=== PATIENT | female | born 1995 | race Caucasian/White ===

== ENCOUNTER 2017-04-01 09:59 | Day surgery (SDC) | payer BC ==
[2017-03-31 11:42] VITALS: BMI 27.4
[~2017-04-01 09:59] MED LIST: LACTATED RINGERS 1,000 ML IV SCH; LIDOCAINE 1% 20 ML VIAL (10MG/ML) FOR IV START INTRADERMA PRN
[2017-04-01 11:09] VITALS: TEMP 97
[2017-04-01 11:09] LABS: Glucose,Whole Blood 78 mg/dL (75-99)
[2017-04-01] MEDS ORDERED: LIDOCAINE 1% INJ 10MG/ML (20 ML MDV) ONE (12:26)
[2017-04-01] MEDS ORDERED: MIDAZOLAM 2 MG/2 ML VIAL ONE (12:26)
[2017-04-01] MEDS ORDERED: PROPOFOL 10 MG/ML 20 ML VIAL IV ONE (12:26)
--- NOTE | 2017-04-01 13:13 | P.PCN ---
Date of Procedure: 04/01/17 Preoperative Diagnosis: Postoperative Diagnosis: Procedure(s) Performed: Brief history: Patient is a pleasant 22-year-old white female, scheduled for an elective upper endoscopy as well as colonoscopy as a part of evaluation of iron deficiency anemia that was noted 6 months ago. Recent hemoglobin was 9 g/dL and 9 and this is consistent with iron deficiency anemia. Lately has been complaint of periumbilical abdominal pain and occasional epigastric discomfort but denies any nausea vomiting. She reports no rectal bleeding or melena. No prior history of peptic ulcer disease. She had used NSAIDs in the past for arthritis symptoms but she quit taking it and since September of this year. She was recently diagnosed with juvenile rheumatoid arthritis and is on tapering course of prednisone. Procedure performed: Attempted esophagogastroduodenoscopy Colonoscopy with biopsy Preoperative diagnosis: Iron deficiency anemia Periumbilical and epigastric abdominal pain Anesthesia: MAC Procedure: After informed consent was obtained from the patient was brought into the endoscopy unit and IV sedation was administered by anesthesia under continuous monitoring. Initially upper endoscopy was done. The Olympus GF 160 video endoscope was inserted inserted into the mouth and esophagus could not be intubated despite multiple attempts. The scope was removed and a pediatric upper GI scope was inserted in the mouth and once again try to reintubate the esophagus but could not accomplish this. At this point, I used a guidewire which was passed from the upper esophageal sphincter into the esophagus and I tried to gently guide the scope over the guidewire but still was not possible as it appeared to be cricopharyngeal dysfunction. At this time I decided to terminate the procedure. Patient tolerated the procedure well. She continued to remain sedation. Initial digital rectal examination was normal. Olympus CF 160 video colonoscope was then inserted into the rectum and gradually advanced to the cecum without any difficulty. Careful examination was performed as the scope was gradually being withdrawn. The prep was excellent. The ileocecal valve appeared slightly narrowed. Endoscope was removed and a pediatric colonoscope was introduced into the rectum and gradually advanced into the cecum. The pediatric colonoscope was then used to intubate the terminal ileum . There were scattered erosions with ulcerations noted in the terminal ileum with some luminal narrowing, suspicious for Crohn's disease and biopsies were done from this area. The there scattered erosions with normal intervening mucosa noted in the cecum, ascending colon and the hepatic flexure and biopsies were also done from this area., transverse colon, descending colon, sigmoid colon and rectum appeared normal. Retroflexion was performed in the rectum and no lesions were noted. Patient tolerated the procedure well. Impression: 1. Attempted upper endoscopy but the esophagus could not be intubated despite multiple attempts. 2. Colonoscopy revealed: Scattered erosions with ulcerations in the terminal ileum with luminal narrowing suspicious for Crohn's disease Scattered erosions in the cecum, ascending colon and hepatic flexure with normal appearing intervening mucosa, status post biopsies. Left colon and transverse colon appeared normal. Recommendations: Findings of this examination were discussed with the patient as well as her family. She was advised to follow with the biopsy results. In the meantime she 'll be scheduled for an upper GI small bowel series to investigate further and she'll be seen in the office in a week from now. Implants: Indications for Procedure: Operative Findings: Description of Procedure:
[2017-04-01 13:43] VITALS: BP 125/83; PULSE 87; RESP 16
== END 2017-04-01 14:30 | disposition home or self-care (01) ==
LOC: ORWHC2ENDO 09:59
PROVIDERS: ATTEND Internal Medicine Gastroenterology
DX: D50.9 Iron deficiency anemia, unspecified (principal); K52.9 Noninfective gastroenteritis and colitis, unspecified; K52.89 Other specified noninfective gastroenteritis and colitis; M06.9 Rheumatoid arthritis, unspecified; Z79.52 Long term (current) use of systemic steroids; Z79.899 Other long term (current) drug therapy
CPT/HCPCS: 88305; 84703; 45380; J2250; J2001; J2704

== ENCOUNTER → 2017-04-05 | Outpatient (CLI) | payer BC ==
--- NOTE | 2017-04-05 10:45 | FL ---
EXAMINATION: Upper GI with small bowel follow through DATE: 04/05/2017 CLINICAL INDICATION: 22 year-old female with abdominal pain and colonoscopy on 04/01/2017 with biopsies ; findings suspicious for possible Crohn's disease. Unsuccessful attempt at EGD on 04/01/2017 due to un derlying JRA. COMPARISON: None Total Fluoroscopy Time: 1.21 minutes Total images: 40 FINDINGS: The esophagus has a normal caliber, motility and mucosa. There appears to be some posterior indentation along the upper thoracic esophagus. Vascular variant s uch as aberrant right subclavian artery is a possibility. Otherwise, normal course of the esophagus. There is a tiny hiatal hernia and minimal gastroesophageal reflux when the patient is supine. Tiny round filling defects within the gastric fundus and proximal body could represent air bubbles fr om effervescent granules or tiny hyperplastic polyps. Otherwise, the stomach and duodenum are free of any persistent filling defect and demonstrate a normal mucosal pattern. Following administration of barium, serial films were carried out to 30 minutes. Barium is seen to re ach the colon. This is borderline rapid small bowel transit time. Loops of jejunum and ileum are compressed and examined under fluoroscopy. The terminal ileum is identified and shows irregular narrowing with a short segment showing string-li ke opacification. However, the patient does not complain of pain during pressure over this region. There may be some inflammatory luminal narrowing of the inferior cecum as well. There is reflux seen into the appendix. The remaining small bowel loops have a normal caliber and mucosal pattern is within normal limits. IMPRESSION: 1. Tiny hiatal hernia and minimal gastroesophageal reflux when the patient is supine. 2. Focal posterior indentation along the upper thoracic esophagus could represent a vascular anomaly such as an aberrant right subclavian artery. 3. Small round filling defects in the gastric fundus and proximal body could represent either tiny hy perplastic polyps or air bubbles from the effervescent granules. 4. Borderline rapid small bowel transit time of 30 minutes. 5. Irregular luminal narrowing of the terminal ileum. A short segment of the TI shows a string-like c onfiguration. Crohn's ileitis is considered. As the patient did not complain of pain with focal press ure in this region during fluoroscopy, a postinflammatory stricture is not excluded. 6. Some luminal narrowing of the inferior cecum could represent additional inflammatory involvement.
== END | disposition home or self-care (01) ==
LOC: RADFLMAIN 07:55
PROVIDERS: ATTEND Internal Medicine Gastroenterology
DX: K21.9 Gastro-esophageal reflux disease without esophagitis (principal); K44.9 Diaphragmatic hernia without obstruction or gangrene; R93.3 Abnormal findings on diagnostic imaging of other parts of digestive tract; K63.89 Other specified diseases of intestine
CPT/HCPCS: 74245

== ENCOUNTER → 2017-06-10 | Outpatient (CLI) | payer BC ==
[2017-06-10 20:15] LABS: Appearance,Urine Clear (Clear); Bilirubin,Urine Negative (Negative); Glucose,Urine (UA) Negative (Negative); Ketones,Urine Negative (Negative); Leukocyte Esterase,Urine Trace (Negative); Mucus,Urine Rare /hpf; Nitrite,Urine Negative (Negative); PH, Urine 7.5 (5.0-8.0); Particle Count 2457; Protein,Urine Negative (Negative); RBC,Urine <1 /hpf (0-5); Specific Gravity,Urine 1.018 (1.001-1.035); Squamous Epithelial Cell,Urine 5 /hpf (0-4); UA Billing (MACRO vs. MICRO) MICRO; Urobilinogen,Urine <2.0 mg/dL (<2.0); WBC,Urine <1 /hpf (0-5)
== END | disposition home or self-care (01) ==
LOC: MMGSC 15:10
PROVIDERS: ATTEND Physician Assistant
DX: M25.551 Pain in right hip (principal)
CPT/HCPCS: 81001

== ENCOUNTER → 2017-06-27 | Outpatient (CLI) | payer BC | LOC: MMGSC 16:50 | PROVIDERS: ATTEND Family Medicine | DX: N39.0 Urinary tract infection, site not specified (principal) | CPT/HCPCS: 87086 ==

== ENCOUNTER → 2018-03-31 | Outpatient (CLI) | payer BC ==
--- NOTE | 2018-03-31 16:03 | XR ---
EXAMINATION TYPE: XR chest 2V DATE OF EXAM: 03/31/2018 COMPARISON: NONE HISTORY: Z11.1 TECHNIQUE: Frontal and lateral views of the chest are obtained. FINDINGS: There is no focal air space opacity, pleural effusion, or pneumothorax seen. The cardiac silhouette size is within normal limits. The osseous structures are intact. IMPRESSION: No acute cardiopulmonary process.
== END | disposition home or self-care (01) ==
LOC: RADXRMAIN 15:40
PROVIDERS: ATTEND Family Medicine
DX: Z11.1 Encounter for screening for respiratory tuberculosis (principal)
CPT/HCPCS: 71046

== ENCOUNTER → 2019-03-17 | Outpatient (CLI) | payer OTHER ==
[2019-03-17 11:02] LABS: Basophils % (A) 1 %; Eosinophils # (A) 0.2 k/uL (0-0.7); Eosinophils % (A) 2 %; HCT 40.2 % (34.0-46.0); HGB 12.7 gm/dL (11.4-16.0); Lymphocytes % (A) 31 %; MCH 27.7 pg (25.0-35.0); MCHC 31.6 g/dL (31.0-37.0); MCV 87.6 fL (80.0-100.0); Mean Platelet Volume 8.2; Monocytes # (A) 0.5 k/uL (0-1.0); Monocytes % (A) 7 %; Neutrophils # (A) 3.8 k/uL (1.3-7.7); Neutrophils % (A) 57 %; Platelet Count 224 k/uL (150-450); RBC 4.58 m/uL (3.80-5.40); RDW 13.1 % (11.5-15.5); WBC 6.6 k/uL (3.8-10.6)
[2019-03-17 12:46] LABS: Erythrocyte Sedimentation Rate 5 mm/hr (0-20)
[2019-03-17 16:16] LABS: ALT 15 U/L (8-44); AST 22 U/L (13-35); African American GFR (CKD) 141.5 (60.0-200.0); Albumin/Globulin Ratio 1.54 (1.60-3.17); Alkaline Phosphatase 85 U/L (41-126); BUN/Creat Ratio 28.57 Ratio (12.00-20.00); C Reactive Protein <0.4 mg/dL (0.0-0.8); Calcium 9.5 mg/dL (8.7-10.3); Carbon Dioxide 26.1 mmol/L (21.6-31.8); Chloride 108 mmol/L (96-109); Globulin 2.8 g/dL (1.6-3.3); Glucose 78 mg/dL (70-110); Potassium 4.2 mmol/L (3.5-5.5); Sodium 140 mmol/L (135-145); Total Bilirubin 0.6 mg/dL (0.3-1.2); Total Protein 7.1 g/dL (6.2-8.2)
== END | disposition home or self-care (01) ==
LOC: LABWHC1 10:34
PROVIDERS: ATTEND Internal Medicine Gastroenterology
DX: K50.80 Crohn's disease of both small and large intestine without complications (principal)
CPT/HCPCS: 36415; 80053; 85025; 85652; 86140

== ENCOUNTER → 2020-03-24 | Outpatient (CLI) | payer OTHER ==
[2020-03-24 11:05] LABS: Basophils # (A) 0.1 k/uL (0-0.2); Basophils % (A) 1 %; Eosinophils # (A) 0.2 k/uL (0-0.7); Eosinophils % (A) 2 %; HCT 39.9 % (34.0-46.0); HGB 12.6 gm/dL (11.4-16.0); Lymphocytes # (A) 2.7 k/uL (1.0-4.8); Lymphocytes % (A) 27 %; MCH 28.4 pg (25.0-35.0); MCHC 31.6 g/dL (31.0-37.0); MCV 89.8 fL (80.0-100.0); Mean Platelet Volume 8.6; Monocytes # (A) 0.7 k/uL (0-1.0); Monocytes % (A) 7 %; Neutrophils % (A) 61 %; Platelet Count 216 k/uL (150-450); RBC 4.44 m/uL (3.80-5.40); WBC 9.9 k/uL (3.8-10.6)
[2020-03-24 12:39] LABS: Erythrocyte Sedimentation Rate 6 mm/hr (0-20)
[2020-03-24 18:24] LABS: ALT 15 U/L (8-44); AST 17 U/L (13-35); African American GFR (CKD) 147.9 (60.0-200.0); Albumin/Globulin Ratio 1.65 (1.60-3.17); Alkaline Phosphatase 67 U/L (41-126); BUN/Creat Ratio 26.67 Ratio (12.00-20.00); C Reactive Protein <0.4 mg/dL (0.0-0.8); Calcium 9.1 mg/dL (8.7-10.3); Chloride 107 mmol/L (96-109); Globulin 2.6 g/dL (1.6-3.3); Glucose 88 mg/dL (70-110); Non-African American GFR(CKD) 127.6 (60.0-200.0); Potassium 3.8 mmol/L (3.5-5.5); Sodium 139 mmol/L (135-145); Total Bilirubin 0.7 mg/dL (0.3-1.2); Total Protein 6.9 g/dL (6.2-8.2)
== END | disposition home or self-care (01) ==
LOC: LABWHC1 09:42
PROVIDERS: ATTEND Nurse Practitioner
DX: K50.90 Crohn's disease, unspecified, without complications (principal)
CPT/HCPCS: 36415; 80053; 85025; 85652; 86140

== ENCOUNTER → 2020-09-17 | Outpatient (CLI) | payer OTHER ==
[2020-09-17 12:38] LABS: Basophils # (A) 0.1 k/uL (0-0.2); Basophils % (A) 1 %; Eosinophils # (A) 0.1 k/uL (0-0.7); Eosinophils % (A) 2 %; HCT 39.7 % (34.0-46.0); HGB 13.5 gm/dL (11.4-16.0); Lymphocytes # (A) 2.1 k/uL (1.0-4.8); Lymphocytes % (A) 31 %; MCH 30.1 pg (25.0-35.0); MCV 88.5 fL (80.0-100.0); Mean Platelet Volume 8.6; Monocytes # (A) 0.4 k/uL (0-1.0); Monocytes % (A) 6 %; Neutrophils % (A) 58 %; Platelet Count 207 k/uL (150-450); RBC 4.49 m/uL (3.80-5.40); RDW 12.8 % (11.5-15.5); WBC 6.8 k/uL (3.8-10.6)
[2020-09-17 13:42] LABS: Erythrocyte Sedimentation Rate 4 mm/hr (0-20)
[2020-09-18 00:08] LABS: ALT 18 U/L (8-44); AST 23 U/L (13-35); African American GFR (CKD) 140.6 (60.0-200.0); Albumin/Globulin Ratio 2.04 (1.60-3.17); Alkaline Phosphatase 70 U/L (41-126); BUN/Creat Ratio 18.57 Ratio (12.00-20.00); C Reactive Protein <0.4 mg/dL (0.0-0.8); Calcium 9.4 mg/dL (8.7-10.3); Carbon Dioxide 26.1 mmol/L (21.6-31.8); Chloride 107 mmol/L (96-109); Globulin 2.3 g/dL (1.6-3.3); Glucose 89 mg/dL (70-110); Non-African American GFR(CKD) 121.3 (60.0-200.0); Potassium 4.1 mmol/L (3.5-5.5); Sodium 139 mmol/L (135-145); Total Bilirubin 0.5 mg/dL (0.3-1.2)
== END | disposition home or self-care (01) ==
LOC: LABWHC1 11:45
PROVIDERS: ATTEND Internal Medicine Gastroenterology
DX: K50.90 Crohn's disease, unspecified, without complications (principal)
CPT/HCPCS: 36415; 80053; 85025; 85652; 86140

== ENCOUNTER → 2021-03-26 | Outpatient (CLI) | payer OTHER ==
[2021-03-26 22:58] LABS: Basophils # (A) 0.07 X 10*3/uL (0.00-0.10); Basophils % (A) 1.1 %; Eosinophils # (A) 0.14 X 10*3/uL (0.04-0.35); Eosinophils % (A) 2.2 %; HCT 41.3 % (37.2-46.3); HGB 13.4 g/dL (12.0-15.0); Lymphocytes # (A) 1.81 X 10*3/uL (0.90-5.00); Lymphocytes % (A) 28.4 %; MCH 30.2 pg (27.0-32.0); MCHC 32.4 g/dL (32.0-37.0); MCV 93.2 fL (80.0-97.0); Mean Platelet Volume 11.4 fL (9.5-12.2); Monocytes # (A) 0.72 X 10*3/uL (0.20-1.00); Monocytes % (A) 11.3 %; Neutrophils # (A) 3.62 X 10*3/uL (1.80-7.70); Neutrophils % (A) 56.8 %; Platelet Count 268 X 10*3/uL (140-440); RBC 4.43 X 10*6/uL (4.10-5.20); RDW 12.4 % (11.5-14.5); WBC 6.37 X 10*3/uL (4.50-10.00)
[2021-03-27 02:01] LABS: African American GFR (CKD) 90.7 (60.0-200.0); Albumin 4.9 g/dL (3.80-4.90); Albumin/Globulin Ratio 1.75 (1.60-3.17); Anion Gap 10.2 mmol/L (4.00-12.00); Calcium 9.8 mg/dL (8.7-10.3); Carbon Dioxide 21.8 mmol/L (21.6-31.8); Globulin 2.8 g/dL (1.6-3.3); Non-African American GFR(CKD) 78.2 (60.0-200.0); Potassium 4.1 mmol/L (3.5-5.5); Total Bilirubin 0.7 mg/dL (0.3-1.2); Total Protein 7.7 g/dL (6.2-8.2)
== END | disposition home or self-care (01) ==
LOC: LABWHC1 15:54
PROVIDERS: ATTEND Internal Medicine Gastroenterology
DX: K50.90 Crohn's disease, unspecified, without complications (principal)
CPT/HCPCS: 36415; 80053; 85025

== ENCOUNTER → 2021-09-28 | Outpatient (CLI) | payer OTHER ==
[2021-09-28 23:23] LABS: Basophils # (A) 0.07 X 10*3/uL (0.00-0.10); Basophils % (A) 0.9 %; Eosinophils # (A) 0.11 X 10*3/uL (0.04-0.35); Eosinophils % (A) 1.4 %; HCT 40.3 % (37.2-46.3); HGB 12.8 g/dL (12.0-15.0); Lymphocytes # (A) 2.09 X 10*3/uL (0.90-5.00); Lymphocytes % (A) 27.1 %; MCH 30.2 pg (27.0-32.0); MCHC 31.8 g/dL (32.0-37.0); Mean Platelet Volume 11.7 fL (9.5-12.2); Monocytes # (A) 0.64 X 10*3/uL (0.20-1.00); Monocytes % (A) 8.3 %; Neutrophils # (A) 4.77 X 10*3/uL (1.80-7.70); Neutrophils % (A) 61.9 %; Platelet Count 270 X 10*3/uL (140-440); RBC 4.24 X 10*6/uL (4.10-5.20); RDW 12.7 % (11.5-14.5); WBC 7.71 X 10*3/uL (4.50-10.00)
[2021-09-29 00:28] LABS: African American GFR (CKD) 143.2 (60.0-200.0); Albumin 4.8 g/dL (3.8-4.9); Albumin/Globulin Ratio 1.9 (1.60-3.17); Anion Gap 13.5 mmol/L (10.00-18.00); BUN/Creat Ratio 23.65 Ratio (12.00-20.00); Blood Urea Nitrogen 15.3 mg/dL (9.0-27.0); Calcium 9.7 mg/dL (8.7-10.3); Carbon Dioxide 21.3 mmol/L (20.0-27.5); Globulin 2.5 g/dL (1.6-3.3); Non-African American GFR(CKD) 123.6 (60.0-200.0); Potassium 4.2 mmol/L (3.5-5.5); Total Bilirubin 0.4 mg/dL (0.30-1.20); Total Protein 7.4 g/dL (6.2-8.2)
== END | disposition home or self-care (01) ==
LOC: LABWHC1 15:25
PROVIDERS: ATTEND Internal Medicine Gastroenterology
DX: K50.90 Crohn's disease, unspecified, without complications (principal)
CPT/HCPCS: 36415; 80053; 85025

== ENCOUNTER → 2022-04-30 | Outpatient (CLI) | payer OTHER ==
[2022-04-30 22:29] LABS: Basophils # (A) 0.04 X 10*3/uL (0.00-0.10); Basophils % (A) 0.6 %; Eosinophils # (A) 0.25 X 10*3/uL (0.04-0.35); Eosinophils % (A) 3.7 %; HGB 11.4 g/dL (12.0-15.0); Immature Grans, Automated 0.4 %; Lymphocytes # (A) 1.49 X 10*3/uL (0.90-5.00); MCH 30.2 pg (27.0-32.0); MCHC 31.7 g/dL (32.0-37.0); MCV 95.5 fL (80.0-97.0); Mean Platelet Volume 11.8 fL (9.5-12.2); Monocytes # (A) 0.56 X 10*3/uL (0.20-1.00); Monocytes % (A) 8.3 %; NRBC Per 100 WBC 0 /100 WBCS (0.0-0.0); Neutrophils # (A) 4.41 X 10*3/uL (1.80-7.70); Platelet Count 214 X 10*3/uL (140-440); RBC 3.77 X 10*6/uL (4.10-5.20); RDW 12.9 % (11.5-14.5); WBC 6.78 X 10*3/uL (4.50-10.00)
[2022-04-30 22:31] LABS: BUN/Creat Ratio 14.63 Ratio (12.00-20.00); Globulin 2.5 g/dL (1.6-3.3)
[2022-04-30 22:32] LABS: Albumin 4.5 g/dL (3.8-4.9); Albumin/Globulin Ratio 1.82 (1.60-3.17); Anion Gap 11.5 mmol/L (10.00-18.00); Blood Urea Nitrogen 10.8 mg/dL (9.0-27.0); Carbon Dioxide 24.6 mmol/L (20.0-27.5); Non-African American GFR(CKD) 112.2 (60.0-200.0); Potassium 3.4 mmol/L (3.5-5.5); Total Bilirubin 0.3 mg/dL (0.30-1.20)
== END | disposition home or self-care (01) ==
LOC: LABWHC1 15:54
PROVIDERS: ATTEND Internal Medicine Gastroenterology
DX: K50.90 Crohn's disease, unspecified, without complications (principal)
CPT/HCPCS: 36415; 80053; 85025

== ENCOUNTER → 2022-10-29 | Outpatient (CLI) | payer OTHER ==
[2022-10-29 14:42] LABS: Basophils # (A) 0.07 X 10*3/uL (0.00-0.10); Basophils % (A) 0.8 %; Eosinophils # (A) 0.21 X 10*3/uL (0.04-0.35); Eosinophils % (A) 2.5 %; HCT 42.4 % (37.2-46.3); HGB 13.4 g/dL (12.0-15.0); Immature Grans, Automated 0.4 %; Lymphocytes # (A) 1.98 X 10*3/uL (0.90-5.00); Lymphocytes % (A) 23.2 %; MCH 29.9 pg (27.0-32.0); MCHC 31.6 g/dL (32.0-37.0); MCV 94.6 fL (80.0-97.0); Mean Platelet Volume 11.9 fL (9.5-12.2); Monocytes % (A) 9.4 %; NRBC Per 100 WBC 0 /100 WBCS (0.0-0.0); Neutrophils # (A) 5.43 X 10*3/uL (1.80-7.70); Neutrophils % (A) 63.7 %; Platelet Count 283 X 10*3/uL (140-440); RBC 4.48 X 10*6/uL (4.10-5.20); RDW 12.2 % (11.5-14.5); WBC 8.52 X 10*3/uL (4.50-10.00)
[2022-10-29 15:30] LABS: African American GFR (CKD) 126.9 (60.0-200.0); Albumin 4.6 g/dL (3.8-4.9); Albumin/Globulin Ratio 1.8 (1.60-3.17); Anion Gap 10.3 mmol/L (10.00-18.00); BUN/Creat Ratio 18.46 Ratio (12.00-20.00); Blood Urea Nitrogen 13.9 mg/dL (9.0-27.0); Calcium 9.6 mg/dL (8.7-10.3); Carbon Dioxide 25.6 mmol/L (20.0-27.5); Globulin 2.5 g/dL (1.6-3.3); Non-African American GFR(CKD) 109.5 (60.0-200.0); Potassium 4.1 mmol/L (3.5-5.5); Total Bilirubin 0.3 mg/dL (0.30-1.20); Total Protein 7.1 g/dL (6.2-8.2)
== END | disposition home or self-care (01) ==
LOC: LABWHC1 09:37
PROVIDERS: ATTEND Internal Medicine Gastroenterology
DX: K50.90 Crohn's disease, unspecified, without complications (principal)
CPT/HCPCS: 36415; 80053; 85025

== ENCOUNTER → 2023-05-14 | Outpatient (CLI) | payer OTHER ==
[2023-05-14 23:09] LABS: Basophils # (A) 0.05 X 10*3/uL (0.00-0.10); Basophils % (A) 0.8 %; Eosinophils # (A) 0.23 X 10*3/uL (0.04-0.35); Eosinophils % (A) 3.6 %; HCT 38.6 % (37.2-46.3); HGB 12.6 d/dL (12.0-15.0); Lymphocytes # (A) 1.51 X 10*3/uL (0.90-5.00); Lymphocytes % (A) 23.8 %; MCH 29.9 pg (27.0-32.0); MCHC 32.6 d/dL (32.0-37.0); MCV 91.7 FL (80.0-97.0); Mean Platelet Volume 11.5 FL (9.5-12.2); Monocytes # (A) 0.67 X 10*3/uL (0.20-1.00); Monocytes % (A) 10.6 %; NRBC Per 100 WBC 0 X 10*3/uL (0.00-0.01); Neutrophils # (A) 3.87 X 10*3/uL (1.80-7.70); Neutrophils % (A) 60.9 %; Platelet Count 211 X 10*3/uL (140-440); RBC 4.21 X 10*6/uL (4.10-5.20); RDW 12.1 % (11.5-14.5); WBC 6.35 X 10*3/uL (4.50-10.00)
[2023-05-14 23:52] LABS: ALT 15 U/L (8-44); AST 17 U/L (13-35); Albumin 4.6 d/dL (3.8-4.9); Albumin/Globulin Ratio 2.09 Ratio (1.60-3.17); Alkaline Phosphatase 56 U/L (41-126); BUN/Creat Ratio 31.17 Ratio (12.00-20.00); Blood Urea Nitrogen 18.7 mg/dL (9.0-27.0); Calcium 9.6 mg/dL (8.7-10.3); Carbon Dioxide 24.6 mmol/L (21.6-31.8); Chloride 104 mmol/L (96-109); Globulin 2.2 d/dL (1.6-3.3); Glucose 86 mg/dL (70-110); Potassium 4.6 mmol/L (3.5-5.5); Sodium 137 mmol/L (135-145); Total Bilirubin 0.4 mg/dL (0.3-1.2); Total Protein 6.8 d/dL (6.2-8.2)
== END | disposition home or self-care (01) ==
LOC: LABWHC1 11:32
PROVIDERS: ATTEND Internal Medicine Gastroenterology
DX: K50.90 Crohn's disease, unspecified, without complications (principal)
CPT/HCPCS: 36415; 80053; 85025

== ENCOUNTER → 2023-12-08 | Outpatient (CLI) | payer OTHER ==
[2023-12-08 18:03] LABS: Basophils # (A) 0.08 X 10*3/uL (0.00-0.10); Basophils % (A) 0.9 %; Eosinophils % (A) 12.8 %; HGB 12.6 g/dL (12.0-15.0); Lymphocytes # (A) 2.31 X 10*3/uL (0.90-5.00); Lymphocytes % (A) 24.6 %; MCH 29.2 pg (27.0-32.0); MCHC 32.3 g/dL (32.0-37.0); MCV 90.3 FL (80.0-97.0); Mean Platelet Volume 11.5 FL (9.5-12.2); Monocytes # (A) 0.64 X 10*3/uL (0.20-1.00); Monocytes % (A) 6.8 %; NRBC Per 100 WBC 0 X 10*3/uL (0.00-0.01); Neutrophils # (A) 5.12 X 10*3/uL (1.80-7.70); Neutrophils % (A) 54.6 %; Platelet Count 274 X 10*3/uL (140-440); RBC 4.32 X 10*6/uL (4.10-5.20); RDW 12.7 % (11.5-14.5); WBC 9.38 X 10*3/uL (4.50-10.00)
[2023-12-08 18:55] LABS: ALT 15 U/L (8-44); AST 20 U/L (13-35); Albumin 4.6 g/dL (3.8-4.9); Albumin/Globulin Ratio 1.77 Ratio (1.60-3.17); Alkaline Phosphatase 67 U/L (41-126); Blood Urea Nitrogen 17.6 mg/dL (9.0-27.0); Calcium 9.6 mg/dL (8.7-10.3); Carbon Dioxide 24.3 mmol/L (21.6-31.8); Chloride 104 mmol/L (96-109); Globulin 2.6 g/dL (1.6-3.3); Glucose 101 mg/dL (70-110); Potassium 4.1 mmol/L (3.5-5.5); Sodium 138 mmol/L (135-145); Total Bilirubin 0.4 mg/dL (0.3-1.2); Total Protein 7.2 g/dL (6.2-8.2)
== END | disposition home or self-care (01) ==
LOC: LABWHC1 13:30
PROVIDERS: ATTEND Nurse Practitioner Family
DX: K50.90 Crohn's disease, unspecified, without complications (principal)
CPT/HCPCS: 36415; 80053; 85025

== ENCOUNTER → 2024-01-07 | Outpatient (CLI) | payer OTHER | END | disposition home or self-care (01) | LOC: LABWHC1 12:00 | PROVIDERS: ATTEND Internal Medicine Gastroenterology | DX: K50.90 Crohn's disease, unspecified, without complications (principal) | CPT/HCPCS: 36415; 85652; 86140 ==

== ENCOUNTER → 2024-06-09 | Outpatient (CLI) | payer OTHER ==
[2024-06-10 06:05] LABS: Basophils # (A) 0.08 X 10*3/uL (0.00-0.10); Eosinophils # (A) 0.69 X 10*3/uL (0.04-0.35); Eosinophils % (A) 8.9 %; HCT 39.3 % (37.2-46.3); HGB 12.3 g/dL (12.0-15.0); Lymphocytes # (A) 2.31 X 10*3/uL (0.90-5.00); Lymphocytes % (A) 29.7 %; MCH 27.3 pg (27.0-32.0); MCHC 31.3 g/dL (32.0-37.0); MCV 87.3 FL (80.0-97.0); Mean Platelet Volume 11.7 FL (9.5-12.2); Monocytes # (A) 0.56 X 10*3/uL (0.20-1.00); Monocytes % (A) 7.2 %; NRBC Per 100 WBC 0 X 10*3/uL (0.00-0.01); Neutrophils # (A) 4.13 X 10*3/uL (1.80-7.70); Neutrophils % (A) 53.1 %; Platelet Count 281 X 10*3/uL (140-440); RDW 13.8 % (11.5-14.5); WBC 7.78 X 10*3/uL (4.50-10.00)
[2024-06-10 06:23] LABS: BUN/Creat Ratio 34.43 Ratio (12.00-20.00); Blood Urea Nitrogen 24.1 mg/dL (9.0-27.0); Chloride 104 mmol/L (96-109); Glucose 94 mg/dL (70-110); Potassium 4.5 mmol/L (3.5-5.5); Sodium 138 mmol/L (135-145)
[2024-06-10 06:24] LABS: ALT 16 U/L (8-44); AST 17 U/L (13-35); Albumin 4.6 g/dL (3.8-4.9); Alkaline Phosphatase 75 U/L (41-126); Calcium 9.5 mg/dL (8.7-10.3); Carbon Dioxide 24.7 mmol/L (21.6-31.8); Globulin 2.7 g/dL (1.6-3.3); Total Bilirubin 0.3 mg/dL (0.3-1.2); Total Protein 7.3 g/dL (6.2-8.2)
== END | disposition home or self-care (01) ==
LOC: LABWHC1 11:28
PROVIDERS: ATTEND Internal Medicine Gastroenterology
DX: K50.90 Crohn's disease, unspecified, without complications (principal)
CPT/HCPCS: 36415; 80053; 85025

== ENCOUNTER → 2024-12-11 | Outpatient (CLI) | payer BC ==
[2024-12-11 15:42] LABS: Basophils # (A) 0.07 X 10*3/uL (0.00-0.10); Basophils % (A) 0.7 %; Eosinophils # (A) 0.22 X 10*3/uL (0.04-0.35); Eosinophils % (A) 2.2 %; HGB 12.1 g/dL (12.0-15.0); Lymphocytes # (A) 2.24 X 10*3/uL (0.90-5.00); Lymphocytes % (A) 22.4 %; MCH 26.8 pg (27.0-32.0); MCV 86.3 FL (80.0-97.0); Mean Platelet Volume 12.2 FL (9.5-12.2); Monocytes # (A) 0.74 X 10*3/uL (0.20-1.00); Monocytes % (A) 7.4 %; NRBC Per 100 WBC 0.02 X 10*3/uL (0.00-0.01); Neutrophils # (A) 6.71 X 10*3/uL (1.80-7.70); Neutrophils % (A) 67.1 %; Platelet Count 307 X 10*3/uL (140-440); RBC 4.52 X 10*6/uL (4.10-5.20); RDW 13.7 % (11.5-14.5)
[2024-12-11 16:21] LABS: ALT 20 U/L (8-44); AST 22 U/L (13-35); Albumin 4.5 g/dL (3.8-4.9); Albumin/Globulin Ratio 1.67 Ratio (1.60-3.17); Alkaline Phosphatase 76 U/L (41-126); BUN/Creat Ratio 19.12 Ratio (12.00-20.00); Blood Urea Nitrogen 15.3 mg/dL (9.0-27.0); Calcium 9.6 mg/dL (8.7-10.3); Carbon Dioxide 22.8 mmol/L (21.6-31.8); Chloride 105 mmol/L (96-109); Globulin 2.7 g/dL (1.6-3.3); Glucose 95 mg/dL (70-110); Sodium 138 mmol/L (135-145); Total Bilirubin 0.5 mg/dL (0.3-1.2); Total Protein 7.2 g/dL (6.2-8.2)
== END | disposition home or self-care (01) ==
LOC: LABWHC1 10:17
PROVIDERS: ATTEND Nurse Practitioner Family
DX: K50.90 Crohn's disease, unspecified, without complications (principal)
CPT/HCPCS: 36415; 80053; 85025